=== PATIENT | female | born 1995 | race Caucasian/White ===

== ENCOUNTER 2017-07-14 22:03 | Emergency (ER) | payer OTHER ==
[~2017-07-14] VITALS: Ht 162.6 cm; Wt 64.0 kg
[2017-07-14 22:06] VITALS: TEMP 36.6; Ht 162.6 cm; Wt 64.0 kg
[2017-07-14] MEDS ORDERED: AMOX875T3 PO (22:42)
[2017-07-14] MEDS ORDERED: AMOXICIL/CLAVU 875MG HOME PACK PO ONE (22:45)
[2017-07-14] MEDS ORDERED: NEOMYCIN/POLYMYX/HYDROCORT OT SUSP 10 ML BTL OT ONE (22:45)
[2017-07-14] MEDS ORDERED: IUD'IUD IU (22:52)
[2017-07-14] MEDS ORDERED: FERR1TAB62 PO (22:52)
[2017-07-14] MEDS ORDERED: MULT-240 PO (22:52)
[2017-07-14 22:58] VITALS: BP 117/67; PULSE 78; O2SAT 98
--- NOTE | 2017-07-15 02:36 | EMERGENCY ROOM VISIT NOTE ---
ED Visit Note First contact with patient: 22:07 Chief Complaint: Left ear pain and difficulty hearing. History of Present Illness: Ms. Meng is a 21-year-old white female who ambulates into the ED complaining of left ear pain and decreased hearing. Patient reports 2 days ago she awoke from sleep with a mild sore throat and a stuffy nose. These symptoms gradually improved and are resolved. She reports she awoke from sleep today and was experiencing dull left ear pain and felt like her ear was clogged. Since that time this sensation has been constant. She describes her pain as a combination of sharp and achy. She currently rates her discomfort 7/10. Her pain is nonradiating. Associated with her pain she reports she has had having a popping sensation in the ear occasionally, she feels like her ear is throbbing and as previously noted she is having a mild decrease in hearing from the left ear. She does report that she took ibuprofen with mild relief of her discomfort. She has not identified any aggravating factors related to her symptoms. She denies any associated headache, dizziness, lightheadedness, ear drainage, decreasing hearing, headache, neck pain/stiffness, cough, wheezing, shortness of breath, decreased appetite, nausea/vomiting. Additionally she does report she cleans her ears with Q-tips almost every day. Review of Systems: As noted above in history of present illness. 8 body systems were reviewed and found to be negative as noted above. Past Medical History: Status post tonsillectomy. Current Medications: Multivitamins, iron, IUD control. Allergies to Medications: Patient denies. Social History: Patient is currently university student; she feels safe in her home environment; she denies tobacco use and admits to social alcohol use. Physical Examination: Vital Signs: Date Time Temp Pulse Resp B/P (MAP) Pulse Ox O2 Delivery O2 Flow Rate FiO2 07/14/17 22:58 78 18 117/67 98 Room Air 07/14/17 22:06 36.6 80 18 122/74 100 Room Air GENERAL: 21-year-old female in mild distress due to symptoms, nontoxic-appearing , afebrile and hemodynamically stable. NEUROLOGICAL: Awake, alert and oriented to person, place and time. Answering questions appropriately and following commands. Normal gait. Good hand eye coordination. SKIN: Warm, dry and pink. No soft tissue eruptions or trauma noted. HEENT: Atraumatic and normocephalic. No tenderness or erythema over the frontal or maxillary sinuses. External ears are nontender bilaterally. Left ear canal is moderately erythematous but not edematous. The left tympanic membrane was moderately erythematous and mildly bulging. She was able to distinguish whispered speech. No preauricular or postauricular lymphadenopathy. PERRLA. Sclera white and conjunctiva pink without. No drainage from naris without congestion. Oral cavity moist and pink. Uvula is midline and no abscesses are seen. Pharynx is mildly erythematous but not edematous. No posterior pharyngeal exudate material. Speech normal and clear. Airway is patent. No lymphadenopathy. THORAX: Lungs sounds are clear to auscultation and equal bilaterally with symmetrical chest wall. No wheezing, rales or rhonchi. ED Course: Patient is assessed as noted above. Patient's medication list was reviewed. Patient was offered pain medication and refused. 4 drops of Cortisporin Otic suspension was placed in the patient's left ear canal. Patient was educated about today's findings and instructed on her treatment plan ; she verbalized understanding and agreement with this plan. Clinical Impression: Left otitis externa. Left otitis media. Disposition: Patient discharged home in stable condition; prior to departure she was reassessed and subjectively reported she was feeling better and rated her discomfort 2/10. Plan: Patient was encouraged alternate ibuprofen and acetaminophen every 3 hours as needed for persistent pain. Patient was prescribed Augmentin 875 mg 3 times a day for 10 days. Patient was encouraged to use 4 drops of Cortisporin Otic suspension in her left ear canal 4 times a day for 5-7 days. Patient was encouraged not to put anything in her left ear canal and avoid using Q-tips. Patient was encouraged to follow-up at [facility] for recheck in 4-5 days if no better. Patient was encouraged return to the ED for worsening/uncontrolled pain, bloody drainage, puslike drainage, fevers, severe headaches, vomiting, hearing changes or any new/concerning symptoms.
== END 2017-07-14 23:00 | disposition home or self-care (01) ==
LOC: C.EDB 22:04 → C.EDC 23:00
DX: H60.92 Unspecified otitis externa, left ear (principal); H66.92 Otitis media, unspecified, left ear; R07.0 Pain in throat; Z97.5 Presence of (intrauterine) contraceptive device